=== PATIENT | female | born 1960 | race Caucasian/White ===

== ENCOUNTER → 2016-12-26 | Outpatient (CLI) | payer BC | END | disposition home or self-care (01) | LOC: RAD.S 14:42 | DX: Z12.31 Encounter for screening mammogram for malignant neoplasm of breast (principal); N63 Unspecified lump in breast ==

== ENCOUNTER → 2017-01-03 | Outpatient (CLI) | payer BC | END | disposition home or self-care (01) | LOC: RAD.S 13:23 | DX: R92.8 Other abnormal and inconclusive findings on diagnostic imaging of breast (principal); N60.01 Solitary cyst of right breast ==